=== PATIENT | female | born 1995 | race Caucasian/White ===

== ENCOUNTER 2016-06-26 12:15 | Inpatient (IN) | payer OTHER ==
[~2016-06-26] VITALS: Ht 160 cm; Wt 78.6 kg
[2016-06-26 12:26] VITALS: Ht 160 cm; Wt 78.6 kg
[2016-06-26 12:27] VITALS: BP 121/64; PULSE 116; RESP 18
[2016-06-26 14:33] LABS: ADD SCAN DIFF NO
--- NOTE | 2016-06-26 14:33 | RADRPT ---
PROCEDURE: Biophysical profile CLINICAL INDICATION: distress TECHNIQUE: Color and ruiz-scale ultrasound images of an intrauterine gestation were obtained. COMPARISON: None available FINDINGS: A single live intrauterine gestation is identified in cephalic position with an estimated hear t rate of 148 beats per minute. The placenta is located anteriorly and is a grade III. The cervix is obscured by head shadows. No evidence of abruption identified. JORDANA is 6.3 cm. movement 2/2. tone 2/2. breathing movement 2/2. Qualitative AFV 2/2 Total biophysical profile 10/10 IMPRESSION: 10/10 biophysical profile. RPTAT: AA .Rob Gamino MD, MD Date Time Electronically viewed and signed by .Rob Gamino MD, on 06/26/2016 14:33 .P/
[2016-06-26 14:35] LABS: BASOPHILS % 0.3 % (0.0-2.0); EOSINOPHILS # 0.2 10^3/ul (0.0-0.5); EOSINOPHILS % 1.9 % (0.0-7.0); HEMATOCRIT 38.3 % (37.0-47.0); HEMOGLOBIN 12.5 g/dl (12.0-16.0); LYMPHOCYTES # 1.8 10^3/ul (0.8-2.9); LYMPHOCYTES % 20.6 % (18.0-55.0); MEAN CORPUSCULAR HEMOGLOBIN 29.9 pg (29.0-33.0); MEAN CORPUSCULAR HGB CONC 32.6 g/dl (32.0-37.0); MEAN CORPUSCULAR VOLUME 91.6 fl (72.0-104.0); MEAN PLATELET VOLUME 10.6 fl (7.4-10.4); MONOCYTE # 0.6 10^3/ul (0.3-0.9); MONOCYTES % 7.2 % (0.0-13.0); NEUTROPHILS % 68.7 % (30.0-74.0); PLATELET COUNT 217 10^3/UL (140-415); RED BLOOD COUNT 4.18 10^6/ul (4.20-5.40); RED CELL DISTRIBUTION WIDTH 13.2 % (11.5-14.5); WHITE BLOOD COUNT 8.7 10^3/ul (4.8-10.8)
--- NOTE | 2016-06-26 14:35 | RADRPT ---
PROCEDURE: US Abdomen Limited . CLINICAL INDICATION: with abdominal pain. Itching. TECHNIQUE: Multiple real-time images were acquired of the patient's right upper quadrant abdomen u tilizing a high resolution transducer. COMPARISON: None FINDINGS: The liver measures 14.7 cm and demonstrates a normal echogenicity. The gallbladder is filled with a moderate amount of bile. No shadowing echogenic stones or masses are seen in the gallbladder. The gallbladder wall is not thickened at 1.6 mm. No pericholecystic fluid is noted. The common bile duct measures 4.0 mm in diameter. The visualized portions of the proximal pancreas are unremarkable. Th e tail of the pancreas is not well visualized. Antegrade flow is seen in the portal vein. Right kidney measures 10.2 cm. Right kidney demonstrates a normal echogenicity. Mild right hydrone phrosis is identified. No solid masses or stones are noted in the right kidney. IMPRESSION: Mild right hydronephrosis. Etiology is uncertain. Tail of the pancreas not well visualized. If characterization of this structure is needed repeat exa m or CT/MRI is recommended. Otherwise, unremarkable exam. RPTAT: AA .Rob Gamino MD, MD Date Time Electronically viewed and signed by .Rob Gamino MD, MD on 06/26/2016 14:35 .P/
[2016-06-26 15:23] LABS: ALBUMIN 3.3 g/dl (3.3-4.9)
[2016-06-26 15:24] LABS: POTASSIUM 3.5 mmol/L (3.5-5.1)
[2016-06-26 15:26] LABS: ALBUMIN/GLOBULIN RATIO 1.06; BILIRUBIN,INDIRECT 0.2 mg/dl (0-1.1); BILIRUBIN,TOTAL 0.2 mg/dl (0.2-1.3); CREATININE 0.59 mg/dl (0.44-1.00); TOTAL PROTEIN 6.4 g/dl (6.1-8.1)
[2016-06-26 15:27] LABS: CALCIUM 8.9 mg/dl (8.4-10.2)
[2016-06-26] MEDS ORDERED: IBUPROFEN 600 MG TAB PO PRN (16:00)
[2016-06-26] MEDS ORDERED: MISOPROSTOL 200 MCG TAB PR PRN (16:00)
[2016-06-26] MEDS ORDERED: OXYTOCIN 30 UNITS/LR 500 ML IV PRN (16:00)
[2016-06-26] MEDS ORDERED: AMPICILLIN 2 GM/NS (PMX) 100 ML IVPB ONE (16:00)
[2016-06-26] MEDS ORDERED: METHYLERGONOVINE 0.2 MG INJ IM PRN (16:00)
[2016-06-26] MEDS ORDERED: DINOPROSTONE 10 MG VAG SUPP VAG ONE ×2 (16:00→19:00)
[2016-06-26] MEDS ORDERED: OXYTOCIN 30 UNITS/LR 500 ML IV SCH (16:00)
[2016-06-26] MEDS ORDERED: LIDOCAINE 1% (MPF) 30 ML INJ INJ PRN (16:00)
[2016-06-26] MEDS ORDERED: ACETAMINOPHEN/CODEINE #3 TAB PO PRN (16:00)
[2016-06-26] MEDS ORDERED: CARBOPROST 250 MCG INJ IM PRN (16:00)
[2016-06-26 16:29] LABS: PROTIME 13.2 Sec (12.2-14.2)
[2016-06-26 16:30] LABS: PARTIAL THROMBOPLASTIN TIME 28.4 Sec (25.0-35.0)
[2016-06-26] MEDS: LACTATED RINGER'S 1,000 ML IV SCH ×2 (16:49→23:39)
--- NOTE | 2016-06-26 16:52 | RADRPT ---
PROCEDURE: US OB. CLINICAL INDICATION: Size and dates , labor pain TECHNIQUE: Multiple sonographic images of the pelvis and gravid uterus were obtained. The images were reviewed on a PACS workstation. COMPARISON: No prior studies are available for comparison. FINDINGS: There is a single viable intrauterine gestation. Cardiac activity is present with 150 beats per min tay. There is a vertex presentation. The placenta is anterior. There is no evidence for an abruption or placenta previa. There is a slightly decreased amount of amniotic fluid with an JORDANA = 6.3 cm. Measurements were made in order to determine age. The results are as follows: BPD =9.2 cm HC =32.7 cm AC =37.7 cm FL =7.7 cm Estimated gestational age of approximately 38 weeks and 6 days based on ultrasound measurements. Clinical age: 39 weeks and 0 days. The estimated date of delivery is 07/04/2016, based on ultrasound measurements. The EFW = 3951 g, 88%, based on LMP age. RPTAT: AA IMPRESSION: Single viable intrauterine gestation of approximately 38 weeks and 6 days based on ultrasound measu rements. Mild oligohydramnios. .Omero Worthington MD, MD Date Time Electronically viewed and signed by .Omero Worthington MD, on 06/26/2016 16:52 .S/
[2016-06-26] MEDS ORDERED: LACTATED RINGER'S 1,000 ML IV PRN (18:00)
[2016-06-26] MEDS: AMPICILLIN 2 GM/NS (PMX) 100 ML IVPB SCH (19:07)
[2016-06-26] MEDS ORDERED: AMPICILLIN 1 GM/NS (PMX) 50 ML IVPB SCH (20:00)
[2016-06-26] MEDS: BUTORPHANOL 2 MG INJ IV PRN (23:49)
[2016-06-27] MEDS: AMPICILLIN 2 GM/NS (PMX) 100 ML IVPB SCH ×2 (00:58→07:14)
[2016-06-27] MEDS: BUTORPHANOL 2 MG INJ IV PRN (04:00)
[2016-06-27] MEDS ORDERED: FENTAnyl 2MCG/ML-ROPIV 0.2% 100 ML ONE (05:38)
[2016-06-27] MEDS: LACTATED RINGER'S 1,000 ML IV SCH ×2 (05:56→15:58)
[2016-06-27] MEDS ORDERED: FENTAnyl 2MCG/ML-ROPIV 0.2% 100 ML BAG EPI SCH (06:00)
[2016-06-27] MEDS ORDERED: NALOXONE (0.4 MG/ML) INJ IV PRN (06:00)
--- NOTE | 2016-06-27 06:48 | PREOPHP ---
DATE OF ADMISSION: 06/26/2016 HISTORY OF PRESENT ILLNESS: This is a 20-year-old lady, 4, para 3, with 3 spontaneous abort ions in 2014. Her EDC 07/03/2016, at 39 and 1/7 weeks, admitted to labor and delivery area in early labor. She had care in my [place] office and the care was uneventful. The patie nt started to have a lot of itching all over her body about a few days prior to admission and got wo rse up to the time of admission. She has questionable itching as well on the sole of the foot and o n the palms of her hands. She had an ultrasound done and the estimated weight was 8 pounds 11 ounces and the JORDANA was 6.5. Because of the borderline oligohydramnios and to rule out cholestasis of , patient was planned to be delivered. The plans of delivery were explained to the meg ent as to go for vaginal delivery. The risks, benefits, and alternatives to vaginal delivery of C-s ection were explained to them and to her partner. The risk of shoulder dystocia was explained to em as well. The patient and the partner wanted to go for vaginal delivery. They signed the paper f or the shoulder dystocia complications. PAST PERSONAL HISTORY: No history of diabetes, TB, asthma. ALLERGIES: NO ALLERGIES. SOCIAL HISTORY: The patient does not smoke. She does not drink. MEDICATIONS: She does not take any drugs except her iron and vitamins. GYNECOLOGICAL HISTORY: She had menarche at the age of 13, every 28 days interval, 3 to 4 days durat ion, and moderate in amount. FAMILY HISTORY: Noncontributory. She is 4, para 0 with 3 spontaneous abortions in 2014. REVIEW OF SYSTEMS: CARDIOVASCULAR: No chest pains. RESPIRATORY: No cough. GASTROINTESTINAL: No diarrhea. No vomiting. GENITOURINARY: No dysuria. PHYSICAL EXAMINATION: GENERAL: Reveals a conscious coherent lady in no acute distress. VITAL SIGNS: Her blood pressure 120/80, pulse rate 80 per minute, respirations 16 per minute. BREASTS, HEART, AND LUNGS: Within normal limits. ABDOMEN: Soft. Fundic height 38 cm. heart tones 140 per minute. PELVIC: On admission done by nurse revealed the cervix to be fingertip and thick, station -2 in cep halic presentation with the bag of water intact. EXTREMITIES: No pedal edema. ADMITTING DIAGNOSES: A 39 and 1/7th weeks intrauterine with borderline oligohydramnios, s uspected macrosomia, and rule out cholestasis of . All the lab tests were normal. As ment ioned above, the patient wanted to go for vaginal delivery so she was planned to have Cervidil to be inserted. She started to have contractions with the Cervidil. At 4:00 a.m. on 06/27/2016 the Cerv alice was removed, she was 3 cm dilated and 100% effaced. At 5:00 p.m. I came and evaluated the meg ent. She was 4 to 5 cm dilated, 100% effaced, station 0 with the bag of water intact. Good w as noted. The plans again were explained to the patient and asked to go for continue with bleed vag inal delivery and labor. The patient and the partner still wanted to continue so that she had artif icial rupture of membranes, scalp electrodes, and IPC was inserted. She was planned to have P itocin augmentation. The plans again were explained to her. Dictated By: SEE BIANCHI/NTS Conf#: [id number] DID#: [id number]
[2016-06-27] MEDS: OXYTOCIN 30 UNITS/LR 500 ML IV SCH ×2 (09:40→10:43)
[2016-06-27] MEDS ORDERED: ACETAMINOPHEN/CODEINE #3 TAB PO PRN (10:00)
[2016-06-27] MEDS ORDERED: METHYLERGONOVINE 0.2 MG TAB PO PRN (10:00)
[2016-06-27] MEDS ORDERED: NA PHOSPHATE/BIPHOS 133 ML ENEMA PR PRN (10:00)
[2016-06-27] MEDS ORDERED: DIPHENHYDRAMINE 25 MG CAP PO PRN (10:00)
[2016-06-27] MEDS ORDERED: ONDANSETRON 4 MG INJ IV PRN (10:00)
[2016-06-27] MEDS ORDERED: CEFAZOLIN 1 GM/50 ML (PMX) 50 ML IV ONE (10:00)
[2016-06-27] MEDS ORDERED: CARBOPROST 250 MCG INJ IM PRN (10:00)
[2016-06-27] MEDS ORDERED: MAGNESIUM HYDROXIDE 30ML CUP PO PRN (10:00)
[2016-06-27] MEDS ORDERED: ACETAMINOPHEN 325 MG TAB PO PRN ×2 (10:00)
[2016-06-27] MEDS ORDERED: MISOPROSTOL 200 MCG TAB PR PRN (10:00)
[2016-06-27] MEDS ORDERED: BENZOCAINE 20% 56 ML SPRAY TOP PRN (10:00)
[2016-06-27] MEDS ORDERED: WITCH HAZEL/GLYCERIN PAD PR PRN (10:00)
[2016-06-27] MEDS ORDERED: LANOLIN 7 GM TUBE TOP PRN (10:00)
[2016-06-27] MEDS ORDERED: ZOLPIDEM 5 MG TAB PO PRN (10:00)
[2016-06-27] MEDS ORDERED: METHYLERGONOVINE 0.2 MG INJ IM PRN (10:00)
[2016-06-27] MEDS ORDERED: OXYTOCIN 30 UNITS/LR 500 ML IV PRN (10:00)
[2016-06-27 11:20] VITALS: BP 118/70; PULSE 74; RESP 18
[2016-06-27] MEDS ORDERED: AMPICILLIN 2 GM/NS (PMX) 100 ML IV SCH (12:00)
[2016-06-27] MEDS: IBUPROFEN 600 MG TAB PO SCH ×3 (12:11→23:36)
[2016-06-27] MEDS: LACTATED RINGER'S 1,000 ML IV* SCH ×2 (13:38→17:44)
[2016-06-27 16:00] VITALS: BP 116/72; PULSE 74; RESP 18
[2016-06-27 20:00] VITALS: BP 118/59; PULSE 76; RESP 20
[2016-06-27] MEDS: SENNA/DOCUSATE NA (8.6MG/50MG) TAB PO SCH (20:53)
[2016-06-28] VITALS: BP 118/59; PULSE 81; RESP 20
[2016-06-28 04:00] VITALS: BP 114/59; PULSE 76; RESP 18
[2016-06-28] MEDS: IBUPROFEN 600 MG TAB PO SCH ×3 (05:30→18:00)
--- NOTE | 2016-06-28 06:16 | OPR ---
DATE OF OPERATION: 06/27/2016 DIAGNOSIS: This is a 20-year-old lady, 1, at 39 and 1/7 weeks, admitted in early labor. HISTORY OF PRESENT ILLNESS: See dictated history and physical. PHYSICAL EXAMINATION: See dictated history and physical. TECHNIQUE: 39 and 1/7th weeks' intrauterine in early labor with borderline oligohydramnios. She received 1 dose of Cervidil for 9 hours. At 4: 00 a.m., the Cervidil was removed as she was 3 cm dilated and having good contractions. At 5:00 a.m. on 06/27/2016, she had artificial rupture of membranes. scalp electrodes and IPC were inserted. She was 4 to 5 cm dilated at 0 station. She was observed for progress of labor. She received labor epidural, and she progressed well. When she was completely dilated, she was coached to push, and she pushed very well, had a normal spontaneous vaginal delivery, and delivered a healthy baby girl, Apgars 8 and 9, weighing 8 pounds, ounces, 20 inches long. Over midline episiotomy, the placenta was delivered spontaneously and completely. Manual exploration of the uterus revealed no membranes left behind. The cervix, vagina, and vulva were free of hematoma. The position was occiput anterior. There were 3 vessels in the cord. The placenta was normal with a small shiny side and a pinkish maternal side. Midline episiotomy was repaired in layers using 2-0 chromic. The patient tolerated the delivery well. ESTIMATED BLOOD LOSS: Less than 500 mL. Vital signs were stable during and after the delivery. Dictated By: SEE BIANCHI/MELY Conf#: [id number] DID#: [id number] MTDD
[2016-06-28 07:55] VITALS: BP 102/57; PULSE 76; RESP 17
[2016-06-28 08:04] LABS: ADD SCAN DIFF NO
[2016-06-28 08:06] LABS: BASOPHILS % 0.3 % (0.0-2.0); EOSINOPHILS # 0.3 10^3/ul (0.0-0.5); EOSINOPHILS % 2.1 % (0.0-7.0); HEMATOCRIT 31.6 % (37.0-47.0); HEMOGLOBIN 10.3 g/dl (12.0-16.0); LYMPHOCYTES # 3.9 10^3/ul (0.8-2.9); LYMPHOCYTES % 29.6 % (18.0-55.0); MEAN CORPUSCULAR HEMOGLOBIN 30.1 pg (29.0-33.0); MEAN CORPUSCULAR HGB CONC 32.6 g/dl (32.0-37.0); MEAN CORPUSCULAR VOLUME 92.4 fl (72.0-104.0); MEAN PLATELET VOLUME 10.5 fl (7.4-10.4); MONOCYTE # 0.8 10^3/ul (0.3-0.9); MONOCYTES % 6.4 % (0.0-13.0); NEUTROPHILS % 60.7 % (30.0-74.0); PLATELET COUNT 192 10^3/UL (140-415); RED BLOOD COUNT 3.42 10^6/ul (4.20-5.40); RED CELL DISTRIBUTION WIDTH 13.5 % (11.5-14.5); WHITE BLOOD COUNT 13.2 10^3/ul (4.8-10.8)
[2016-06-28] MEDS: SENNA/DOCUSATE NA (8.6MG/50MG) TAB PO SCH ×2 (08:52→21:04)
[2016-06-28 16:00] VITALS: BP 103/56; PULSE 69; RESP 16
[2016-06-28 20:20] VITALS: BP 107/58; PULSE 75; RESP 18
[2016-06-28] MEDS ORDERED: BISACODYL (EC) 5 MG TAB PO PRN (20:30)
[2016-06-29] MEDS: IBUPROFEN 600 MG TAB PO SCH ×3 (00:13→12:19)
[2016-06-29 04:00] VITALS: BP 111/55; PULSE 80; RESP 18
[2016-06-29 08:00] VITALS: BP 108/60; PULSE 66; RESP 18
[2016-06-29 08:03] LABS: ADD SCAN DIFF NO
[2016-06-29 08:10] LABS: BASOPHILS % 0.4 % (0.0-2.0); EOSINOPHILS # 0.3 10^3/ul (0.0-0.5); EOSINOPHILS % 2.6 % (0.0-7.0); HEMATOCRIT 32.8 % (37.0-47.0); HEMOGLOBIN 10.5 g/dl (12.0-16.0); LYMPHOCYTES # 2.7 10^3/ul (0.8-2.9); MEAN CORPUSCULAR HEMOGLOBIN 29.9 pg (29.0-33.0); MEAN CORPUSCULAR VOLUME 93.4 fl (72.0-104.0); MEAN PLATELET VOLUME 10.4 fl (7.4-10.4); MONOCYTE # 0.5 10^3/ul (0.3-0.9); MONOCYTES % 4.7 % (0.0-13.0); NEUTROPHIL # 6.4 10^3/ul (1.6-7.5); NEUTROPHILS % 64.4 % (30.0-74.0); PLATELET COUNT 202 10^3/UL (140-415); RED BLOOD COUNT 3.51 10^6/ul (4.20-5.40); RED CELL DISTRIBUTION WIDTH 13.5 % (11.5-14.5)
[2016-06-29] MEDS ORDERED: VARICELLA VACCINE LIVE/PF 1,350 UNIT/0.5 ML ML SC* ONE (09:00)
[2016-06-29] MEDS ORDERED: DIPHTH/TET/ACEL PERTUSS (ADULT) 0.5 ML VIAL IM* ONE (09:00)
[2016-06-29] MEDS ORDERED: MEASLES,MUMPS,RUBELLA VACCINE INJ SC* ONE (09:00)
[2016-06-29] MEDS: SENNA/DOCUSATE NA (8.6MG/50MG) TAB PO SCH (09:00)
[2016-06-29] MEDS ORDERED: DIPHENHYDRAMINE 25 MG CAP PO PRN (10:30)
[2016-06-30 17:25] LABS: CHOLIC ACID 2.3 umol/L (< OR = 1.8); DEOXYCHOLIC ACID 1.3 umol/L (< OR = 2.4); TOTAL BILE ACIDS 6.6 umol/L (< OR = 6.8)
== END 2016-06-29 13:30 | disposition home or self-care (01) | DRG 775 ==
LOC: OBT 12:15 → L-D 12:16 → OBT 15:45 → L-D 15:45 → PP1 06-27 11:10
PROVIDERS: ADMIT Obstetrics & Gynecology; ATTEND Obstetrics & Gynecology
PROC: 10E0XZZ Delivery of Products of Conception, External Approach (ICD-10-PCS; principal; 2016-06-27)
PROC: 0W8NXZZ Division of Female Perineum, External Approach (ICD-10-PCS; 2016-06-27)
PROC: 3E0P7GC Introduction of Other Therapeutic Substance into Female Reproductive, Via Natural or Artificial Opening (ICD-10-PCS; 2016-06-27)
PROC: 3E033VJ Introduction of Other Hormone into Peripheral Vein, Percutaneous Approach (ICD-10-PCS; 2016-06-27)
DX: O26.62 Liver and biliary tract disorders in childbirth (principal); K83.1 Obstruction of bile duct; O41.03X0 Oligohydramnios, third trimester, not applicable or unspecified; O36.63X0 Maternal care for excessive fetal growth, third trimester, not applicable or unspecified; Z3A.39 39 weeks gestation of pregnancy; Z37.0 Single live birth
CPT/HCPCS: 62319; 76705; 76815; 76818; 80053; 83789; 85025; 85610; 85730; 86592; 86900; 86901; 87340; 90715; 90716; 99464; G0463; J0290; J2590; J3010; J7120